=== PATIENT | male | born 1995 | race Caucasian/White ===

== ENCOUNTER 2020-12-17 13:54 | Emergency (ER) | payer MEDICAID, OTHER ==
[~2020-12-17] VITALS: Ht 170.2 cm; Wt 81.0 kg
[2020-12-17 13:56] VITALS: BP 146/82
== END 2020-12-17 14:35 | disposition left against medical advice (07) ==
LOC: ER 14:14
DX: R56.9 Unspecified convulsions (principal)
CPT/HCPCS: 99283